=== PATIENT | male | born 2000 | race Caucasian/White ===

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

== ENCOUNTER 2023-10-11 00:06 | Day surgery (SDC) | payer BC, SELFPAY ==
[2023-10-05 14:44] VITALS: BMI 23.0
--- NOTE | 2023-10-05 14:48 | PC.NURSE ---
Report to the Outpatient Waiting Room, entrance under the green pavilion located off [facility], at time 1030 on date 10/11/23. Planned Procedure Time: 1230. Time changes happen often and if your time is changed the preop area will call you the afternoon before. - You and your visitor will be asked to self-screen and do not enter if you have any COVID symptoms. - A mask is optional within the hospital at this time. Patients may have clear liquids (water, carbonated beverages, clear teas, apple juice) until 3 hours prior to surgery with a maximum of 20 ounces. - No food from midnight until time of surgery Take the following medications with a SIP of water the morning of surgery: SERTRALINE DO NOT STOP ANY OF YOUR OTHER PRESCRIPTION MEDICATIONS PRIOR TO SURGERY ?EXCEPT THE FOLLOWING Medications to discontinue per physician: N/A Date to take last dose: N/A Please no make-up, nail ukrainian, hairspray, perfume, deodorant, or body powder the day of surgery. No jewelry (including any body piercings) or valuables the day of surgery, leave them at home. Please take a shower or bath the night before, or the morning of, surgery with an antibacterial soap. Wear comfortable, loose fitting clothing. - Jewelry must be removed prior to entering the operating room. Rings and piercings that are not removed may be cut off. - The hospital will not accept responsibility for valuables. - Please leave all valuables, including medications, at home the day of surgery. If you are going home after surgery, a licensed light truck driver must drive you home. - NO public transportation without another adult if you receive anesthesia. - We recommend that an adult stay with you for 24 hours following discharge. - We also recommend that you do not drive, make important decision, drink alcoholic beverages, or take any drugs that were not prescribed by your health care provider for at least 24 hours after your discharge time. Follow any additional instructions given to you from your surgeon. If you or anyone in your household have experienced Covid symptoms in the past week, please notify your surgeon or the nurse liaison at the phone number below for possible testing. Telephone instructions given to PT - MARYCRUZ BARRERA and asked if any additional questions and then verbalized understanding. Patient advised to call surgeon office or pre surgery nurse liaison [phone] if any additional questions.
--- NOTE | 2023-10-10 17:20 | PM.IMHP ---
H&P: HPI History of Present Illness Date/Time: 10/10/23 17:20 Chief Complaint: septal deviation turbinate hypertrophy chronic sinusitis Review of Systems Review of Systems: All systems reviewed & are unremarkable except as noted in HPI and below PMFSH Past Medical History Medical History Allergies Anxiety Broken wrist Surgical History Surgical History H/O wrist surgery History of hernia repair Social History Social History Smoking status: Never smoker Alcohol intake: current Drinks per week: 10 Alcohol use details: 1-2 times a week, 8-12 drinks (beer, seltzers) Substance use: current Substance use type: marijuana Lack of Transportation: No Lack of Food: Never True Current Housing: I Have Housing Concerned About Future Housing: Decline to Answer Difficulty Paying Gas/Electric Bills: Decline to Answer Difficulty Paying for Meds: Decline to Answer Currently Unemployed: No Education: High School Diploma/GED Difficulty w/ Childcare or Family Care: No Living arrangements: with family Spiritual care concerns: No Meds Home Medications and Allergies Home Medications Medication Instructions Recorded Confirmed Type sertraline 50 mg tablet 100 mg PO DAILY 11/03/22 10/05/23 History pantoprazole 40 mg tablet,delayed 40 mg PO QAM #90 tabs 06/20/23 10/05/23 Rx release prednisone 10 mg tablet 10 mg PO .daily #5 tabs 10/05/23 10/05/23 Rx Allergies Allergy/AdvReac Type Severity Reaction Status Date / Time No Known Allergies Allergy Mild Verified 10/05/23 14:43 Exam Narrative: septal deviation turbinate hypertrophy chronic appearing sinuses Assessment and Plan Assessment and plan (1) Deviated nasal septum: Code(s): J34.2 - Deviated nasal septum Status: Acute Assessment and Plan: plan OR for image guided endoscopic bilateral maxillary antrostomies, bilateral total ethmoidectomies, polypectomy, endoscopic assisted septoplasty, inferior turbinate reduction with outfracture bilaterally. Risks were discussed including bleeding infection damage to surrounding structures damage to structure the clavicle by myself septal perforation damage to any structure the induction and maintenance of anesthesia including vocal cord paralysis. The resolve symptoms need for further procedures need for time off work time off school inherent risks of narcotic use. CSF leak brain brain damage change in vision total blindness. (2) PND (post-nasal drip): Code(s): R09.82 - Postnasal drip Status: Acute (3) Nasal polyps: Code(s): J33.9 - Nasal polyp, unspecified Status: Acute (4) Chronic sinusitis: Code(s): J32.9 - Chronic sinusitis, unspecified Status: Acute (5) Hypertrophy of both inferior nasal turbinates: Code(s): J34.3 - Hypertrophy of nasal turbinates Status: Acute
[2023-10-11] VITALS (8 sets, daily range): BP systolic 127–170; BP diastolic 51–92; PULSE 71–103; RESP 10–20; TEMP 36.7–37.1; O2SAT 94–99
--- NOTE | 2023-10-11 07:18 | WPDHPUPDATE1 ---
History and Physical Update Update Date/Time: 10/11/23 07:18 History and Physical has been reviewed, including an updated exam of the patient. There are NO changes in the patient's condition. Risks, benefits, and alternatives have been discussed and questions answered. Patient agrees to proceed with procedure.
[2023-10-11] MEDS: LACTATED RINGERS 1,000 ML 30 ML IV CONT ×2 (11:00→18:05)
[2023-10-11] MEDS: ACETAMINOPHEN 500 MG TABLET 1000 MG PO (12:39)
--- NOTE | 2023-10-11 12:44 | SUR.PREOP ---
1240-pt and family aware surgeon delays self undetermined amount of time.
--- NOTE | 2023-10-11 13:18 | WPDANESEPPF ---
Anes - Initial Pre Proc Eval Procedure: Operation Date: 10/11/23 12:30 Proposed Procedures p Image Guided Endoscopic Bilateral Maxillary Antrostomy, Bilateral Total Ethmoidectomy, Bilateral Polypectomy, Bilateral Inferior Turbinate Reduction with Outfracture - Ariel Butler MD s Endoscopic Septoplasty - Ariel Butler MD Date/Time: 10/11/23 13:18 Surgeon: Ariel Butler MD Pre Op Diagnosis: Turbinate Hypertrophy, Septal Deviation, (cont) Patient Data Age: 22 Gender: M Height: 1.83 m Weight: 76.35 kg Last Vital Signs Temp 37.1 C 10/11/23 10:49 Pulse 71 10/11/23 10:49 Resp 20 10/11/23 10:49 BP 130/63 10/11/23 10:49 Pulse Ox 99 10/11/23 10:49 O2 Del Method Room Air 10/11/23 10:49 Allergies Allergy/AdvReac Type Severity Reaction Status Date / Time No Known Allergies Allergy Mild Verified 10/05/23 14:43 Home Medications Medication Instructions Recorded Confirmed Type sertraline 50 mg tablet 100 mg PO DAILY 11/03/22 10/11/23 History pantoprazole 40 mg tablet,delayed 40 mg PO QAM #90 tabs 06/20/23 10/11/23 Rx release prednisone 10 mg tablet 10 mg PO .daily #5 tabs 10/05/23 10/05/23 Rx Patient hx anesthesia problems: none Family hx anesthesia problems: none Results Review: All pre-operative results and documents have been reviewed as part of the pre-operative evaluation. [facility] Past Medical History Medical History Allergies Anxiety Broken wrist Surgical History Surgical History H/O wrist surgery History of hernia repair Social History Social History Smoking status: Never smoker Alcohol intake: current Drinks per week: 10 Alcohol use details: 1-2 times a week, 8-12 drinks (beer, seltzers) Substance use: current Substance use type: marijuana Lack of Transportation: No Lack of Food: Never True Current Housing: I Have Housing Concerned About Future Housing: Decline to Answer Difficulty Paying Gas/Electric Bills: Decline to Answer Difficulty Paying for Meds: Decline to Answer Currently Unemployed: No Education: High School Diploma/GED Difficulty w/ Childcare or Family Care: No Living arrangements: with family Spiritual care concerns: No Anes - Eval Final PreProcedure Day of Procedure 10/11/23 13:18 Patient weight: normal Heart: regular rate and rhythm Lungs: clear to auscultation Airway: Mallampati scale class II Neurological: alert and oriented Last oral intake: >/= 8 hours ASA classification: II Emergent: no Anesthetic plan: proceed Anesthesia type and monitoring: general ETT and standard monitoring Results Review: All pre-operative results and documents have been reviewed as part of the pre-operative evaluation. Informed Consent: The patient's anesthetic plan and its attendant risks and benefits were discussed with the patient/family/POA. Questions were solicited and answers provided to the satisfaction of the patient/family/POA.
[2023-10-11] MEDS: ceFAZolin 2 GM/D5W 50 ML 2 GM/50 ML BAG IVPB (13:27)
[2023-10-11] MEDS: LIDO 1%/EPINEPHRINE 1:100,000 20 ML VIAL 10 ML INFILTRATE (14:00)
--- NOTE | 2023-10-11 14:54 | SUR.OPER ---
Dr. Ariel Butler got verbal consent from Judit Tolliver (Luis Fernando's mother) for bilateral adenoidectomy. Jacques Alejandro (HANDY) agrees.
[2023-10-11] MEDS: MUPIROCIN 2% OINT 22 GM TUBE 1 APPLIC EACH NARE (16:19)
[2023-10-11] MEDS: fentaNYL CITRATE INJ (*CRX) 100 MCG/2 ML VIAL 25 MCG IV PUSH ×2 (18:38→18:52)
--- NOTE | 2023-10-11 19:16 | P.OP_ITS ---
Procedure Note - Detailed Date of Procedure 10/11/23 Pre-op Diagnosis Turbinate Hypertrophy, Septal Deviation, (cont) nasal polyps chronic sinusitis Post-op Diagnosis Same Procedure Performed Septoplasty endoscopic assisted turbinate reduction with outfracture bilaterally inferior bilateral image guided endoscopic maxillary antrostomies total ethmoidectomies, transnasal adenoidectomy, resection left vanessa bullosa Surgeon Ariel Butler MD Anesthesia General Indications see above Findings diseased mucosa throughout image guidance malfunction multiple times throughout the procedure making it very challenging. large adenoids discussed with family remove those as well there was completely obstructive. Left vanessa bullosa also resected Description of Procedure Patient denies ever find prep. Patient OR. Time-out performed. General anesthesia induced untreated secured. Patient prepped for a physician procedure confirm 2nd time-out performed. Image guidance initially confirmed. Afrin- soaked pledgets placed bilaterally lot of sick from conservative. Kill incision made left side. Total 13 cc of 1% lidocaine 1 100,000 parts epinephrine checked in bilateral nasal septum inferior turbinates. [place] incision made left-sided nasal septum. Left nasal septal flap elevated osteotome utilized a crossover right nasal septal flap elevated. Deviated septum removed Emre Rhoadeston forceps Kevin forceps osteotome. The incision closed by rotate fast gut 5 interrupted 5 0 fast gut sutures. Middle turbinates medialized at this point noted left vanessa bullosa resected discussed with mom that the patient had large adenoids is resected transnasally Bovie suction electrocautery setting of 30. Vanessa bullosa resected with sickle knife microdebrider. Maxillary antrostomies performed with backbiter straight through cut double ball tip probe microdebrider. Bilaterally to severely to be diffuse diseased polypoid mucosa total ethmoids performed with [place] image guidance. A very challenging case the image guidance continue to malfunction throughout the case discussed with the there control technician multiple times throughout. Did not work well. Lochia was able to avoid injuring the orbit skull base or septum. S quilting stitch placed for plain gut to hold the turbinates medial as well as the septum together high. Blood loss 200 cc. Dow splints placed right lateral to middle turbinate left was trimmed sat medial. Because of a low tear in the nasal septum. Patient tolerated procedure well no complications intelligence analyst patient given back to Anesthesiology. I performed all dictated portions of procedure. Estimated Blood Loss 200 Drains No Packing Yes (nessaa rios ) Pathology None sent Complications No immediate complications Condition Stable Disposition PACU [facility] Billing Surgery - Charge Forward: Surgery Billing
[2023-10-11] MEDS: oxyCODONE HCL (*CRX) 5 MG TAB IR PO (19:23)
== END 2023-10-11 20:20 | disposition home or self-care (01) ==
PROVIDERS: PCP Internal Medicine; Visit Provider Otolaryngology
PROC: (CPT 31256; principal; 2023-10-11 12:30)
PROC: (CPT 30520; 2023-10-11 12:30)
DX: J34.2 Deviated nasal septum (principal); J32.9 Chronic sinusitis, unspecified; J34.3 Hypertrophy of nasal turbinates; J33.9 Nasal polyp, unspecified; R09.82 Postnasal drip; F41.9 Anxiety disorder, unspecified; F12.90 Cannabis use, unspecified, uncomplicated
CPT/HCPCS: 31256; 31255; 61782; 31240; 42999; 30520; 30140; A9270; J0690; J1100; J1170; J2250; J2371; J2405; J2704; J3010; J7040; J7120

== ENCOUNTER 2024-09-18 15:16 | Emergency (ER) | payer BC, SELFPAY ==
--- NOTE | 2024-09-18 15:17 | ED_ITS ---
HPI - Ear Problem General Chief complaint: Ear Stated complaint: Right Ear Irritation Time Seen by Provider: 09/18/24 15:17 Source: patient Mode of arrival: ambulatory Limitations: no limitations History of Present Illness HPI Narrative: Luis Fernando is a 23-year-old male patient presenting to the clinic today with complaints of right ear pressure/popping/clogged sensation for the past 5 days. He reports no URI symptoms. Denies any fever, chills, body aches. Related Data Home Medications Medication Instructions Recorded Confirmed sertraline 50 mg tablet 100 mg PO DAILY 11/03/22 09/18/24 albuterol sulfate 90 mcg/actuation 1 puff inhalation Q4-5H 09/18/24 09/18/24 aerosol inhaler Allergies Allergy/AdvReac Type Severity Reaction Status Date / Time No Known Allergies Allergy Mild Verified 09/18/24 15:17 Review of Systems Review of Systems: Pertinent positives per HPI. Patient denies any fever, chills, rash, headache, visual changes, dizziness, cough, runny nose, sore throat, shortness of breath, chest pain, palpitations, nausea, vomiting, diarrhea, constipation, abdominal pain, or any urinary issues. [facility] Past Medical History Medical History Allergies Anxiety Broken wrist Surgical History Surgical History H/O wrist surgery History of hernia repair Social History Social History Smoking status: Never smoker Alcohol intake: current Drinks per week: 10 Alcohol use details: 1-2 times a week, 8-12 drinks (beer, seltzers) Substance use: current Substance use type: marijuana Lack of Transportation: No Lack of Food: Never True Current Housing: I Have Housing Concerned About Future Housing: Decline to Answer Difficulty Paying Gas/Electric Bills: Decline to Answer Difficulty Paying for Meds: Decline to Answer Currently Unemployed: No Education: High School Diploma/GED Difficulty w/ Childcare or Family Care: No Living arrangements: with family Spiritual care concerns: No Comments At the time of my signature, I reviewed and agree with the nursing past medical, surgical, social, and family history. There is no relevant family history pertinent to the patient complaint. Exam Narrative: General: Well-developed, well nourished, in no apparent distress Head: Normocephalic, atraumatic Eyes: Pupils equally round and reactive to light bilaterally, EOM intact, sclera and conjunctive clear, no discharge, lids normal Ears: Left TMs intact and clear, right TM intact, mild bulging, with fluid noted behind the TM, ear canals clear, no drainage, grossly hearing normal. Nose: Nares patent, no discharge, no inflammation, no sinus tenderness. Mouth: Oropharynx without lesions or masses, good dentition, MMM. Neck: Supple, trachea midline, no enlargement of anterior or posterior cervical nodes, no thyroid masses or goiter palpable. Cardio: Regular rate and rhythm, s1 and s2 normal, no murmur appreciated. Resp: Clear to auscultation bilaterally anteriorly and posteriorly, no rhonchi, rales, wheezing or rubs Course Course Emergency Course: Portions of this record may have been created with voice recognition software. Level of Care: Express Care Visit Vital Signs Vital signs: Vital signs reviewed Medical Decision Making MDM Narrative Medical decision making narrative: At the time of visit patient is resting comfortably on the exam table. Patient appears to be nontoxic. Plan: I suspect patient has serous otitis. Prescription for prednisone was sent to the pharmacy. Supportive measures were discussed with the patient and they voiced understanding discharge instructions and agrees to treatment plan. Return precautions reviewed Differential Diagnosis Differential Diagnosis: Otitis media, otitis externa, eustachian tube dysfunction, cerumen impaction, upper respiratory infection, serous otitis Discharge Plan Discharge Clinical Impression: Acute serous otitis media Qualifiers: Laterality: right Recurrence: non-recurrent Qualified Code(s): H65.01 - Acute serous otitis media, right ear Patient Disposition: Home, Self-Care Condition: Stable Instructions: Antibiotic Form, Fluid In The Ear (Serous Otitis Media) (ED) Additional Instructions: Take any prescribed medications only as directed-prednisone Tylenol/motrin as needed for pain May use heating pad to alleviate pain Flonase and [id number] antihistamine such as Zyrtec or Claritin. If you get recurrent ear infections it may be warranted to follow up with ENT. Follow up with your PCP in 3-5 days if symptoms persist. Prescriptions: New prednisone 50 mg tablet 50 mg PO DAILY 5 Days Qty: 5 0RF No Action sertraline 50 mg tablet 100 mg PO DAILY albuterol sulfate 90 mcg/actuation HFA aerosol inhaler 1 puff INHALATION Q4-5H budesonide 0.25 mg/2 mL suspension for nebulization 0.25 mg irrigation BID Qty: 120 6RF Rx Instructions: 2ml in each irrrigation bottle, irrigate with two bottles per day pantoprazole 40 mg tablet,delayed release (DR/EC) 40 mg PO QAM Qty: 90 3RF Follow-up/Referrals: UNKNOWN,DOCTOR [Non-Staff] - Time of Disposition: 15:27 Quality NIHSS Nursing Documentation ED NIHSS nursing documentation: reviewed/agree
[2024-09-18 15:21] VITALS: BP 116/70; PULSE 71; RESP 16; TEMP 36.7; O2SAT 100
== END 2024-09-18 15:30 | disposition home or self-care (01) ==
PROVIDERS: Emergency Provider Nurse Practitioner Family
DX: H65.01 Acute serous otitis media, right ear (principal); Z79.899 Other long term (current) drug therapy
CPT/HCPCS: 99213; G0463